=== PATIENT | male | born 1970 | race Caucasian/White ===

== ENCOUNTER 2024-02-09 15:06 | Inpatient (IN) | payer MEDICARE, OTHER ==
[~2024-02-09] VITALS: Ht 188 cm; Wt 76.1 kg
[2024-02-09] VITALS (9 sets, daily range): BP systolic 115–137; BP diastolic 62–79; TEMP 96.6–98.2; O2SAT 93–100
[2024-02-09] MEDS ORDERED: IBUP-1022 PO (15:34)
[2024-02-09 16:29] LABS: BASO % 0.2 % (0.0-1.0); EOS % 0.1 % (0.0-3.0); HEMOGLOBIN 14.2 g/dl (13.5-17.5); LYMPH # 1.1 10^3/uL (1.5-5.0); LYMPH % 12.5 % (24.0-44.0); MEAN CORPUSCULAR HEMOGLOBIN 30.5 pg (27.0-33.0); MEAN CORPUSCULAR HGB CONC 33.8 g/dl (32.0-36.5); MEAN CORPUSCULAR VOLUME 90.1 fl (80.0-96.0); MONO # 0.7 10^3/uL (0.0-0.8); MONO % 7.9 % (2.0-8.0); NEUTROPHILS % 79.1 % (36.0-66.0); PLATELET COUNT, AUTOMATED 259 10^3/uL (150-450); RED BLOOD COUNT 4.66 10^6/uL (4.30-6.10); WHITE BLOOD COUNT 8.8 10^3/uL (4.0-10.0)
[2024-02-09 16:41] LABS: INR 1.09; PROTHROMBIN TIME 13.8 SECONDS (12.5-14.5)
[2024-02-09] MEDS ORDERED: MAALOX 30 ML SUSP *UDC PO PRN (16:45)
[2024-02-09] MEDS ORDERED: MOM 30ML SUSPENSION UDC PO PRN (16:45)
[2024-02-09] MEDS ORDERED: MIDAZOLAM INJ 2MG/2ML VIAL As Ordered ONE (16:46)
[2024-02-09] MEDS ORDERED: LIDOCAINE 1% MDV 20ML VIAL As Ordered ONE (16:47)
[2024-02-09] MEDS ORDERED: flumazeniL 0.5MG/5ML VIAL As Ordered ONE (16:48)
[2024-02-09] MEDS ORDERED: LEVALBUTEROL 1.25MG 0.5ML CONCENTRATE NEB NEB PRN (16:50)
[2024-02-09] MEDS ORDERED: BISACODYL 10MG SUPP PR PRN (16:50)
[2024-02-09] MEDS ORDERED: PERCOCET 5MG/325MG TAB PO PRN (16:50)
[2024-02-09 16:55] LABS: BLOOD UREA NITROGEN 15 MG/DL (9-23); CALCIUM LEVEL 9.9 MG/DL (8.5-10.1); CARBON DIOXIDE LEVEL 28 MMOL/L (20-31); CHLORIDE LEVEL 102 MMOL/L (98-107); CREATININE FOR GFR 1.01 MG/DL (0.70-1.30); GLOMERULAR FILTRATION RATE > 60.0 (>56); GLUCOSE, FASTING 124 MG/DL (60-100); POTASSIUM SERUM 4.1 MMOL/L (3.5-5.1); SODIUM LEVEL 136 MMOL/L (136-145)
[2024-02-09 17:37] LABS: PROCALCITONIN 0.05 ng/ml
[2024-02-09] MEDS: KETOROLAC 30 MG/ML 1ML VIAL IV SCH (17:38)
[2024-02-09] MEDS: LIDOCAINE 1% MDV 20ML VIAL SC STA (17:41)
[2024-02-09] MEDS: MIDAZOLAM INJ 2MG/2ML VIAL IV STA (17:41)
[2024-02-09] MEDS: flumazeniL 0.5MG/5ML VIAL IV STA (17:41)
[2024-02-09] MEDS: HEPARIN SOD (PORCINE) 5000UNITS/ML 1ML VIAL/SYRINGE SC SCH (17:42)
[2024-02-09] MEDS: D5W/0.9% SODIUM CHLORIDE 1,000 ML IV SCH (17:43)
[2024-02-09] MEDS: LEVALBUTEROL 1.25MG 0.5ML CONCENTRATE NEB NEB SCH (18:52)
[2024-02-09] MEDS: ONDANSETRON 4MG 2ML VIAL IV PRN (20:26)
[2024-02-09] MEDS: DOCUSATE SODIUM 100MG CAPSULE PO SCH (20:26)
[2024-02-09] MEDS: MORPHINE 4 MG/ML 1ML VIAL IV PRN (20:27)
[2024-02-09] MEDS: PERCOCET 5MG/325MG TAB PO PRN (21:51)
[2024-02-10] VITALS (12 sets, daily range): BP systolic 114–137; BP diastolic 57–72; TEMP 97.3–98; O2SAT 94–97
[2024-02-10 05:54] LABS: BASO % 0.4 % (0.0-1.0); EOS % 0.6 % (0.0-3.0); HEMATOCRIT 35.5 % (42.0-52.0); LYMPH # 1.9 10^3/uL (1.5-5.0); LYMPH % 27.9 % (24.0-44.0); MEAN CORPUSCULAR HEMOGLOBIN 30.4 pg (27.0-33.0); MEAN CORPUSCULAR HGB CONC 33.5 g/dl (32.0-36.5); MEAN CORPUSCULAR VOLUME 90.8 fl (80.0-96.0); MONO # 0.5 10^3/uL (0.0-0.8); MONO % 8.1 % (2.0-8.0); NEUTROPHILS # 4.2 10^3/uL (1.5-8.5); NEUTROPHILS % 62.9 % (36.0-66.0); PLATELET COUNT, AUTOMATED 195 10^3/uL (150-450); RED BLOOD COUNT 3.91 10^6/uL (4.30-6.10); WHITE BLOOD COUNT 6.7 10^3/uL (4.0-10.0)
[2024-02-10 05:55] LABS: HEMOGLOBIN 11.9 g/dl (13.5-17.5)
[2024-02-10 06:15] LABS: BLOOD UREA NITROGEN 15 MG/DL (9-23); CALCIUM LEVEL 8.8 MG/DL (8.5-10.1); CARBON DIOXIDE LEVEL 29 MMOL/L (20-31); CHLORIDE LEVEL 105 MMOL/L (98-107); CREATININE FOR GFR 1.04 MG/DL (0.70-1.30); GLOMERULAR FILTRATION RATE > 60.0 (>56); GLUCOSE, FASTING 122 MG/DL (60-100); MAGNESIUM LEVEL 1.8 MG/DL (1.8-2.4); POTASSIUM SERUM 4.1 MMOL/L (3.5-5.1); SODIUM LEVEL 138 MMOL/L (136-145)
[2024-02-10] MEDS: PANTOPRAZOLE 40MG TAB (PROTONIX) PO SCH (08:49)
[2024-02-10] MEDS: GLYCOPYRROLATE INJ 0.2 MG/ML 2 ML VIAL IV PRN (10:30)
[2024-02-10] MEDS: fentaNYL 100 MCG/2 ML INJECTION IV PRN (10:57)
[2024-02-10] MEDS: MIDAZOLAM INJ 2MG/2ML VIAL IV PRN (10:58)
[2024-02-10] MEDS: ONDANSETRON 4MG 2ML VIAL IV STA (10:58)
[2024-02-10] MEDS ORDERED: diphenhydrAMINE 50MG/ML VIAL IV PRN (11:00)
[2024-02-10] MEDS ORDERED: NALBUPHINE HCL 1MG/0.1ML (100MG/10ML) MDV IV PRN (11:00)
[2024-02-10] MEDS ORDERED: ONDANSETRON 4MG 2ML VIAL IV PRN (11:00)
[2024-02-10] MEDS ORDERED: EPIDURAL/PCA KEYS XX PRN (11:00)
[2024-02-10] MEDS ORDERED: NALOXONE INJ 0.4MG/1ML VIAL IV PRN (11:00)
[2024-02-10] MEDS ORDERED: LIDOCAINE W/EPINEPHRINE 1% 20ML VIAL As Ordered ONE (11:16)
[2024-02-10] MEDS ORDERED: LIDOCAINE 2% W/EPINEPHRINE 20ML VIAL **PRES FREE As Ordered ONE (11:18)
[2024-02-10] MEDS: BUPIVACAINE HCL 0.5% EPIDURAL SCH (11:37)
[2024-02-10] MEDS: NS EPIDURAL SCH (11:37)
[2024-02-10] MEDS: FENTANYL CITRATE EPIDURAL SCH (11:37)
[2024-02-10] MEDS: LIDOCAINE 1% SDV 5ML VIAL PN ONE (11:58)
[2024-02-10] MEDS ORDERED: NS EPIDURAL SCH (12:36)
[2024-02-10] MEDS ORDERED: BUPIVACAINE HCL 0.5% EPIDURAL SCH (12:36)
[2024-02-10] MEDS ORDERED: FENTANYL CITRATE EPIDURAL SCH (12:36)
[2024-02-10] MEDS: ACETAMINOPHEN TAB 650MG DOSE (2X325MG) PO PRN (18:53)
[2024-02-10] MEDS: OXYMETAZOLINE 0.05% NASAL SPRAY (AFRIN) SCH (19:47)
[2024-02-11] VITALS (19 sets, daily range): BP systolic 101–134; BP diastolic 54–67; TEMP 97.1–98.6; O2SAT 93–100
[2024-02-11] MEDS: METOCLOPRAMIDE INJ 10MG/2ML VIAL IV PRN (04:14)
[2024-02-11 05:36] LABS: BASO % 0.5 % (0.0-1.0); EOS # 0.1 10^3/uL (0.0-0.5); EOS % 0.8 % (0.0-3.0); HEMATOCRIT 35.1 % (42.0-52.0); HEMOGLOBIN 11.7 g/dl (13.5-17.5); LYMPH # 1.4 10^3/uL (1.5-5.0); LYMPH % 22.1 % (24.0-44.0); MEAN CORPUSCULAR HEMOGLOBIN 30.3 pg (27.0-33.0); MEAN CORPUSCULAR HGB CONC 33.3 g/dl (32.0-36.5); MEAN CORPUSCULAR VOLUME 90.9 fl (80.0-96.0); MONO # 0.6 10^3/uL (0.0-0.8); MONO % 9.9 % (2.0-8.0); NEUTROPHILS # 4.1 10^3/uL (1.5-8.5); NEUTROPHILS % 66.5 % (36.0-66.0); PLATELET COUNT, AUTOMATED 184 10^3/uL (150-450); RED BLOOD COUNT 3.86 10^6/uL (4.30-6.10); WHITE BLOOD COUNT 6.2 10^3/uL (4.0-10.0)
[2024-02-11 06:00] LABS: BLOOD UREA NITROGEN 15 MG/DL (9-23); CARBON DIOXIDE LEVEL 31 MMOL/L (20-31); CHLORIDE LEVEL 100 MMOL/L (98-107); CREATININE FOR GFR 0.97 MG/DL (0.70-1.30); GLOMERULAR FILTRATION RATE > 60.0 (>56); GLUCOSE, FASTING 117 MG/DL (60-100); MAGNESIUM LEVEL 1.7 MG/DL (1.8-2.4); POTASSIUM SERUM 4.1 MMOL/L (3.5-5.1); SODIUM LEVEL 134 MMOL/L (136-145)
[2024-02-11] MEDS ORDERED: HOME MED LIST COMPLETE! XX SCH (11:35)
[2024-02-11] MEDS ORDERED: NALBUPHINE HCL 1MG/0.1ML (100MG/10ML) MDV IV PRN (14:40)
[2024-02-11] MEDS ORDERED: EPIDURAL/PCA KEYS XX PRN (14:40)
[2024-02-11] MEDS ORDERED: NALOXONE INJ 0.4MG/1ML VIAL IV PRN (14:40)
[2024-02-11] MEDS ORDERED: METOCLOPRAMIDE INJ 10MG/2ML VIAL IV PRN (14:40)
[2024-02-11] MEDS ORDERED: ONDANSETRON 4MG 2ML VIAL IV PRN (14:40)
[2024-02-11] MEDS ORDERED: diphenhydrAMINE 50MG/ML VIAL IV PRN (14:40)
[2024-02-11] MEDS: MAG SULF 1GM/100ML (MAG RUN) 1 GM in IV 1 EA IV SCH (16:08)
[2024-02-11] MEDS: BUPIVACAINE HCL 0.5% 62.5 ML in NS 187.5 ML EPIDURAL SCH (16:08)
[2024-02-12] VITALS (16 sets, daily range): BP systolic 119–152; BP diastolic 61–68; TEMP 96.9–98.2; O2SAT 92–98
[2024-02-12 05:55] LABS: BASO % 0.3 % (0.0-1.0); EOS % 0.6 % (0.0-3.0); HEMATOCRIT 36.2 % (42.0-52.0); HEMOGLOBIN 12.3 g/dl (13.5-17.5); LYMPH # 1.4 10^3/uL (1.5-5.0); LYMPH % 21.5 % (24.0-44.0); MEAN CORPUSCULAR HEMOGLOBIN 30.4 pg (27.0-33.0); MEAN CORPUSCULAR VOLUME 89.6 fl (80.0-96.0); MONO # 0.7 10^3/uL (0.0-0.8); MONO % 10.4 % (2.0-8.0); NEUTROPHILS # 4.3 10^3/uL (1.5-8.5); NEUTROPHILS % 66.9 % (36.0-66.0); PLATELET COUNT, AUTOMATED 201 10^3/uL (150-450); RED BLOOD COUNT 4.04 10^6/uL (4.30-6.10); WHITE BLOOD COUNT 6.5 10^3/uL (4.0-10.0)
[2024-02-12 06:17] LABS: BLOOD UREA NITROGEN 14 MG/DL (9-23); CALCIUM LEVEL 9.4 MG/DL (8.5-10.1); CARBON DIOXIDE LEVEL 35 MMOL/L (20-31); CHLORIDE LEVEL 98 MMOL/L (98-107); CREATININE FOR GFR 1.05 MG/DL (0.70-1.30); GLOMERULAR FILTRATION RATE > 60.0 (>56); GLUCOSE, FASTING 122 MG/DL (60-100); MAGNESIUM LEVEL 2.1 MG/DL (1.8-2.4); POTASSIUM SERUM 4.4 MMOL/L (3.5-5.1); SODIUM LEVEL 135 MMOL/L (136-145)
[2024-02-12] MEDS: DICLOFENAC EPOLAMINE 1.3% PATCH TOP ONE (06:31)
[2024-02-13 04:04] VITALS: BP 114/65; TEMP 97.5; O2SAT 95
[2024-02-13 05:42] LABS: BASO % 0.6 % (0.0-1.0); EOS # 0.1 10^3/uL (0.0-0.5); HEMATOCRIT 36.2 % (42.0-52.0); HEMOGLOBIN 12.3 g/dl (13.5-17.5); LYMPH # 1.7 10^3/uL (1.5-5.0); LYMPH % 34.1 % (24.0-44.0); MEAN CORPUSCULAR HEMOGLOBIN 30.5 pg (27.0-33.0); MEAN CORPUSCULAR VOLUME 89.8 fl (80.0-96.0); MONO # 0.5 10^3/uL (0.0-0.8); MONO % 10.4 % (2.0-8.0); NEUTROPHILS # 2.7 10^3/uL (1.5-8.5); NEUTROPHILS % 52.7 % (36.0-66.0); PLATELET COUNT, AUTOMATED 208 10^3/uL (150-450); RED BLOOD COUNT 4.03 10^6/uL (4.30-6.10); WHITE BLOOD COUNT 5.1 10^3/uL (4.0-10.0)
[2024-02-13 05:58] LABS: BLOOD UREA NITROGEN 18 MG/DL (9-23); CALCIUM LEVEL 9.2 MG/DL (8.5-10.1); CARBON DIOXIDE LEVEL 31 MMOL/L (20-31); CHLORIDE LEVEL 104 MMOL/L (98-107); CREATININE FOR GFR 0.95 MG/DL (0.70-1.30); GLOMERULAR FILTRATION RATE > 60.0 (>56); GLUCOSE, FASTING 110 MG/DL (60-100); POTASSIUM SERUM 4.3 MMOL/L (3.5-5.1); SODIUM LEVEL 140 MMOL/L (136-145)
[2024-02-13 08:00] VITALS: BP 131/63; TEMP 97.3; O2SAT 97
[2024-02-13] MEDS ORDERED: COLA100C5 PO (11:52)
[2024-02-13] MEDS ORDERED: OXYC1TAB23 PO (11:52)
[2024-02-13 12:00] VITALS: BP 134/82; TEMP 97.1; O2SAT 100
== END 2024-02-13 12:30 | disposition home or self-care (01) | DRG 200 ==
LOC: M ED 15:06 → EDBD 15:06 → M ED INP 16:42 → M PCU 16:47 → UNDODISIN 02-13 11:02
PROVIDERS: ADMIT Internal Medicine; ATTEND Internal Medicine
PROC: 0W9900Z Drainage of Right Pleural Cavity with Drainage Device, Open Approach (ICD-10-PCS; principal; 2024-02-09)
PROC: B246ZZZ Ultrasonography of Right and Left Heart (ICD-10-PCS; 2024-02-11)
DX: S27.0XXA Traumatic pneumothorax, initial encounter (principal); S22.41XA Multiple fractures of ribs, right side, initial encounter for closed fracture; E87.1 Hypo-osmolality and hyponatremia; W18.09XA Striking against other object with subsequent fall, initial encounter; R11.2 Nausea with vomiting, unspecified; T40.415A Adverse effect of fentanyl or fentanyl analogs, initial encounter; G89.11 Acute pain due to trauma; R00.1 Bradycardia, unspecified; E83.42 Hypomagnesemia; Y93.E6 Activity, residential relocation; Y99.8 Other external cause status; Y92.019 Unspecified place in single-family (private) house as the place of occurrence of the external cause